=== PATIENT | female | born 1935 | race Caucasian/White ===

== ENCOUNTER 2022-06-27 06:28 | Observation (INO) | payer MEDICARE, OTHER ==
[~2022-06-27] VITALS: Ht 162.6 cm; Wt 48.0 kg
[~2022-06-27 06:28] MED LIST: ALENDRONATE SOD70 MG PO; CALCIUM 600-VI1 EA10 PO; CLOPIDOGREL75 MG PO; DIGITEK125 MCG PO; DIGOXIN125 MCG PO; GLUCOPHAGE500 MG PO; MACROBID 100 M100 MG PO; METFORMIN HCL500 MG PO; METOPROLOL SUC200 MG PO; SIMVASTATIN20 MG PO; VISION PLUS LU1 EACH PO; VITAMIN C500 M1 PO; WARFARIN SODIU2.5 MG PO; ZOCOR40 MG PO
--- OUTSIDE RECORDS SUMMARY | 2022-06-27 06:40 | XMS ---
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 Elisabeth has no Care Guidelines for this patient. [place] VISIT COUNT (12 MO.) 2 [facility] [place] [facility] TOTAL 2 NOTE: Visits indicate total known visits. 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
[2022-06-27] MEDS ORDERED: CLOPIDOGREL75 MG PO (06:41)
--- NOTE | 2022-06-27 11:30 | EKG ---
[facility] [address] [place] [address] Signed Atrial fibrillation with premature ventricular or aberrantly conducted complexes Rightward axis Minimal voltage criteria for LVH, may be normal variant ( Zane product ) Nonspecific ST and T wave abnormality Abnormal ECG No previous ECGs available Confirmed by Romel Trammell MD () on 06/27/2022 11:30:33 AM Electronically Signed By: ROMEL TRAMMELL MD 06/27/22 1130 PATIENT NAME: REGAN LIZARRAGA JOCELIN Electrocardiogram DATE OF : [birth year] PHYSICIAN: ROMEL TRAMMELL MD REPORT #: [id number] REPORT IS CONFIDENTIAL AND NOT TO BE RELEASED WITHOUT AUTHORIZATION
[2022-06-27 11:39] VITALS: BP 154/77
--- NOTE | 2022-06-27 12:07 | NUR ---
Patient arrived to the medical floor, alert and oriented x4. Patient able to stand for transfer to unit bed, tolerated fair. Patient reports she has been having difficulty getting phlegm to clear from throat. Mucinex to be admin per provider order. Patient oriented to room and call light. Bed alarm intact.
[2022-06-27 14:04] VITALS: BP 150/82
--- NOTE | 2022-06-27 17:05 | NUR ---
TYLENOL 650MG PO ADMIN FOR REPORTS OF RIB PAIN WITH COUGHING.
[2022-06-27 18:16] VITALS: BP 117/60
--- NOTE | 2022-06-27 19:25 | NUR ---
REPORT RECEIVED FROM DAY SHIFT RN. PT LYING IN BED ALERT AND ORIENTED. DENIES NEEDS. WHITE BOARD UPDATED. CALL LIGHT IN REACH.
--- NOTE | 2022-06-27 19:45 | NUR ---
BED ALARM SOUNDING. PT UP TO BR WITH SBA AND CANE TO VOID. PT INCONTINENT WELL. CLEAN BRIEF PROVIDED. BACK TO BED, GORGE WELL. GAIT UNSTEADY AT TIMES. NO FURTHER NEEDS. BED ALARM FOR SAFETY. CALL LIGHT IN REACH.
[2022-06-27 20:16] VITALS: BP 143/84; BP 143/841
--- NOTE | 2022-06-27 20:28 | NUR ---
PT BLOOD SUGAR 380. MD NOTIFIED PER ORDER. NEW TELEPHONE ORDERS RECEIVED VERIFIED WITH READBACK METHOD.
--- NOTE | 2022-06-27 21:07 | NUR ---
EVENING ASSESSMENT COMPLETE. SCHEDULED MEDS ADMIN PER EMAR. PRN ADMIN FOR DRY COUGH. PT DENIES PAIN OR NAUSEA. TELE #4. HR IRREGULAR. RATE 90-100'S. PT DENIES CHEST PAIN OR SOB. LUNGS CLEAR. SBA TO BR WITH CANE TO VOID. GAIT UNSTEADY AT TIMES. BACK TO BED, GORGE WELL. ROOM TEMP ADJUSTED AND PERSONAL FAN PROVIDED. PT DENIES QUESTIONS OR CONCERNS. CALL LIGHT IN REACH. BED ALARM FOR SAFETY.
--- NOTE | 2022-06-27 23:19 | NUR ---
PT REPORTS LEG PAIN/CRAMPING. ASSISTED TO SIT IN RECLINER. PRN FOR PAIN ADMIN PER EMAR. NO FURTHER NEEDS. CHAIR ALARM IN PLACE. CALL LIGHT IN REACH.
--- NOTE | 2022-06-28 00:05 | NUR ---
CALL LIGHT ANSWERED. PT UP TO BR WITH SBA TO VOID. BACK TO BED, GORGE WELL. REPORTS LEG PAIN IMPROVED. NO FURTHER NEEDS. BED ALARM FOR SAFETY.
[2022-06-28 02:14] VITALS: BP 119/57
--- NOTE | 2022-06-28 02:15 | NUR ---
PT RESTING WITH EYES CLOSED. AWAKENS EASILY. VS AND I&O OBTAINED. ASSESSMENT COMPLETE. NO NEEDS AT THIS TIME. BED ALARM FOR SAFETY.
--- NOTE | 2022-06-28 03:54 | NUR ---
BED ALARM SOUNDING. PT UP TO BR WITH SBA TO VOID. GAIT STEADY. BACK TO RECLINER WITH LEGS ELEVATED. CHAIR ALARM IN PLACE. NO FURTHER NEEDS.
--- NOTE | 2022-06-28 06:25 | NUR ---
CRITICAL LAB VALUE RECEIVED. MD UPDATED. NO NEW ORDERS AT THIS TIME.
[2022-06-28 06:48] VITALS: BP 140/65
--- NOTE | 2022-06-28 06:49 | NUR ---
PT AWAKE IN RECLINER. VS AND I&O OBTAINED. UP TO BR WITH SBA AND CANE TO VOID. GAIT UNDSTEADY AT TIMES. BACK TO RECLINER. CHAIR ALARM IN PLACE. CALL LIGHT IN REACH.
--- NOTE | 2022-06-28 07:37 | NUR ---
RECIEVED SHIFT REPORT. PT AWAKE IN CHAIR, ALARM ON FOR SAFETY. CALL LIGHT IN REACH.
[2022-06-28 08:13] VITALS: BP 139/62
--- NOTE | 2022-06-28 08:27 | NUR ---
MORNING ASSESSMENT COMPLETE. PT AWAKE IN RECLINER. BACK PAIN 09/17, PRN PAIN MED ADMINISTERED (PER EMAR). NO NEW CARDIAC ISSUES, REMAINS IN AFIB. PT STATES LAST BOWEL MOVEMENT 4 DAYS AGO ON WEDNESDAY. PT COMPLIANT WITH TAKING A BOWEL REGIMEN. DENIES FURTHER NEEDS. CALL LIGHT IN REACH. CHAIR ALARM ON FOR SAFETY
--- NOTE | 2022-06-28 13:43 | NUR ---
MED REC COMPLETE
--- NOTE | 2022-06-28 14:01 | NUR ---
pt resting in chair, eyes closed, breathing even and unlabored. call light in reach.
[2022-06-28 14:15] VITALS: BP 120/58
--- NOTE | 2022-06-28 15:08 | NUR ---
AFTERNOON ASSESSMENT COMPLETE. NO NEW CHANGES SINCE MORNING ASSESSMENT. CALL LIGHT IN REACH.
[2022-06-28 18:10] VITALS: BP 122/54
--- NOTE | 2022-06-28 18:33 | NUR ---
PT WALKED TO RESTROOM, SBA, WITH CANE W/O DIFFICULTY. RIGHT RIB PAIN 8/10 AT THIS TIME. REQUESTED PRN PAIN MED. CALL LIGHT IN REACH. DENIES FURTHER NEEDS.
--- NOTE | 2022-06-28 19:34 | NUR ---
REPORT RECEIVED FROM DAY SHIFT RN. PT SITTING IN RECLINER ALERT AND ORIENTED. DENIES NEEDS. WHITE BOARD UPDATED. CALL LIGHT IN REACH.
[2022-06-28 19:55] VITALS: BP 145/80
--- NOTE | 2022-06-28 20:24 | NUR ---
EVENING ASSESSMENT COMPLETE. SCHEDULED MEDS ADMIN PER EMAR. PRN ADMIN FOR DRY COUGH. PT DENIES SOB. LUNGS CLEAR. TELE #4. AFIB. HR 70-80'S AT THIS TIME. SBA TO BR TO VOID. GAIT UNSTEADY AT TIMES. BACK TO BED, GORGE WELL. DENIES QUESTIONS OR CONCERNS. CALL LIGHT IN REACH. BED ALARM FOR SAFETY.
--- NOTE | 2022-06-28 22:28 | NUR ---
PT UTILIZES CALL LIGHT, REQUESTS TO USE THE BATHROOM. PT UP TO BATHROOM AND BACK TO BED WITH 1PA AND CANE. TOLERATED WELL. BED ALARM REACTIVATED. PT DENIES FURTHER NEEDS. CALL LIGHT IN REACH.
--- NOTE | 2022-06-29 00:26 | NUR ---
PT RESTING IN BED WITH EYES CLOSED. RESPIRATIONS EVEN. TELE #4. AFIB. HR 60-70'S. BED ALARM IN PLACE. CALL LIGHT IN REACH.
--- NOTE | 2022-06-29 03:26 | NUR ---
PT RESTING IN BED WITH EYES CLOSED. RESPIRATIONS EVEN. CALL LIGHT IN REACH.
[2022-06-29 05:37] VITALS: BP 122/60
--- NOTE | 2022-06-29 06:15 | NUR ---
VS AND I&O OBTAINED. PT UP TO BR WITH SBA AND CANE TO VOID. GAIT WEAK. BACK TO RECLINER. ASSESSMENT COMPLETE. PT REPORTS RIGHT SIDE PAIN 09/17. PRN FOR PAIN AND WARM COMPRESS PROVIDED. NO FURTHER NEEDS. CALL LIGHT IN REACH.
[2022-06-29 08:21] VITALS: BP 106/71
--- NOTE | 2022-06-29 08:29 | NUR ---
PT SITTING UP IN CHAIR. STATES HER RIGHT SIDED RIB PAIN IS A LITTLE BETTER WITHT HE TYLENOL. BREAKFAST ARRIVED. ADMINISNTERD MORNING MEDS. PT DENIES CONCERNS. CALL LIGHT IN REACH.
--- NOTE | 2022-06-29 10:46 | NUR ---
PT ALERT, SITTING IN CHAIR FINISHING AM MEAL. PT IS PLEASANT, SAID SHE IS BOTHERED BY SPORATIC PAIN IN HER R SIDE. GAVE SUPPORT, PT REQUESTED PRAYER GAVE G.POST AND BLESSING. WILL FOLLOW
[2022-06-29] MEDS ORDERED: AZITHROMYCIN250 MG PO (10:48)
[2022-06-29] MEDS ORDERED: CEFPODOXIME PR200 MG PO (10:48)
[2022-06-29] MEDS ORDERED: MUCINEX600 MG PO (10:51)
--- NOTE | 2022-06-29 14:28 | NUR ---
CONNECTED WITH PT AND HER JESSICA PT WAS READY FOR DC. GAVE BLESSING AND ENCOURAGEMENT
== END 2022-06-29 11:35 | disposition home or self-care (01) ==
LOC: ED 06:28 → MS 06:30
PROVIDERS: ADMIT Family Medicine; ATTEND Family Medicine
DX: I48.91 Unspecified atrial fibrillation (principal); R05.9 Cough, unspecified; R79.1 Abnormal coagulation profile; R79.89 Other specified abnormal findings of blood chemistry; E83.42 Hypomagnesemia; N39.0 Urinary tract infection, site not specified; I10 Essential (primary) hypertension; E11.9 Type 2 diabetes mellitus without complications; Z88.0 Allergy status to penicillin; Z88.2 Allergy status to sulfonamides; Z79.01 Long term (current) use of anticoagulants; Z79.84 Long term (current) use of oral hypoglycemic drugs; Z79.899 Other long term (current) drug therapy; Z20.822 Contact with and (suspected) exposure to COVID-19
CPT/HCPCS: 36415; 51701; 71045; 74018; 80048; 80053; 80162; 81001; 83605; 83735; 83880; 84100; 85025; 85610; 87502; 93005; 93010; 96375; 99285-25; A9270; G0378; J0456; J1815; J3475; U0002

== ENCOUNTER 2023-03-14 15:45 | Emergency (ER) | payer MEDICARE, OTHER ==
[~2023-03-14] VITALS: Ht 162.6 cm; Wt 46.5 kg
[~2023-03-14 15:45] MED LIST changes: +AZITHROMYCIN250 MG PO; +CEFPODOXIME PR200 MG PO; +MUCINEX600 MG PO
[2023-03-14 16:51] LABS: BASOPHILS 0.8 % (0-2); EOSINOPHILS 1.1 % (0-6); HEMATOCRIT 38.7 % (35.0-50.0); HEMOGLOBIN 12.7 g/dL (12.0-18.0); LYMPHOCYTES 29.8 % (24-44); MCH 29.5 (27-36); MCHC 32.9 g/dl (30-36); MCV 89.6 fl (81-99); MONOCYTES 10.6 % (0-12); NEUTROPHILS 57.7 % (39-80); PLATELET COUNT 155 K/uL (140-440); RBC 4.32 M/ul (4.3-5.7); RDW 15.1 (10.5-15.0)
[2023-03-14 17:03] LABS: INR 2.26 (0.80-1.30)
[2023-03-14 17:14] LABS: ALBUMIN 3.8 g/dL (3.4-5.0); ALBUMIN/GLOBULIN RATIO 1.23 (1.1-2.4); ANION GAP 14.2 (7-21); BILIRUBIN, TOTAL 0.5 ng/dL (0.2-1.0); BUN/CREATININE RATIO 23.07 (6.0-28.6); CALCIUM 9.4 mg/dL (8.5-10.1); CREATININE, SERUM 0.78 mg/dL (0.55-1.02); POTASSIUM 4.2 mmol/L (3.5-5.1); PROTEIN, TOTAL 6.9 g/dL (6.4-8.2)
[2023-03-14] MEDS ORDERED: FUROSEMIDE20 MG PO (17:45)
[2023-03-14] MEDS ORDERED: K-TAB ER20 MEQ PO (17:45)
[2023-03-14 18:00] VITALS: BP 160/79
== END 2023-03-14 18:00 | disposition home or self-care (01) ==
LOC: ED 15:45
PROVIDERS: Emergency Medicine
DX: R60.0 Localized edema (principal); E11.9 Type 2 diabetes mellitus without complications; I10 Essential (primary) hypertension; I48.91 Unspecified atrial fibrillation; Z79.84 Long term (current) use of oral hypoglycemic drugs; Z79.01 Long term (current) use of anticoagulants; Z79.02 Long term (current) use of antithrombotics/antiplatelets; Z79.899 Other long term (current) drug therapy; Z88.0 Allergy status to penicillin; Z88.2 Allergy status to sulfonamides
CPT/HCPCS: 36415; 80053; 83880; 85025; 85610